=== PATIENT | female | born 1985 | race African-American/Black ===

== ENCOUNTER 2024-07-22 08:29 | Emergency (ER) | payer OTHER, SELFPAY ==
[2024-07-22 08:37] VITALS: BP 113/63
--- NOTE | 2024-07-22 09:03 | EDRN ---
Angelo MELTON in room w/ pt at this time.
--- NOTE | 2024-07-22 09:05 | ED.GENMED ---
History of Present Illness
General
Chief Complaint: Throat Problem
Source: patient
Exam Limitations: none
Time Seen by Provider: 07/22/24 08:52
Nursing documentation reviewed up to this point in time: agreed with
History of Present Illness
History of Present Illness:
39 y/o F 19 weeks preg
htn pre
here with itchy scratchy throat and a cough since lat night
has some nasal congestion and brought up some mucus
cough kept her up
no vomiting/diarrhea/voice hoarseness/ear pain/fever/chills/bodyaches
pt is vaccinated for flu and covid
works at [employer] and a lot of kids there are sick
no meds taken
Past History
Past History
ED Past Medical History: HTN
ED Past Surgical History: None
Social History
Tobacco: Non-smoker
Alcohol: None
Drug: None
Personal: Single
Living: with family
Review of Systems
Review of Systems
Allergies reviewed?: Yes
All Other Systems: Not applicable
Phy Exam
Physical Exam
Physical Exam:
GENERAL: Alert , in no apparent distress
EYE: pupils equal and reactive
NECK: Supple
ENT: b/l TM s clear, pharynx normal no tonsillar hypertrophy or exudates, boggy nasal mucosa b/l, erythematous turbinates
CARDIAC: Regular rate and rhythm, no edema
LUNGS: Clear breath sounds bilaterally, no acute respiratory distress, no wheezes/rales/rhonchi, occ cough
ABDOMEN: Soft, without focal tenderness, no r/g, no cvat, normal bowel sounds
NEUROLOGICAL: Alert and oriented, no focal neuro deficits
SKIN: Warm and dry, skin intact.
MUSCULOSKELETAL: No edema, well perfused.
PSYCH: Normal and appropriate interaction.
Course
Orders/Labs/Results
Orders:
Orders
07/22/24 09:21
COVID-19 Antigen Urgent
Source: Nasal Swab
Influenza A+B Rapid Molecular Urgent
DIANE Source: Nasal Swab
Specimen Description:
Vital Signs
Initial and Last Documented VS:
Initial Vital Signs
Temp Pulse Resp BP Pulse Ox
36.9 C 79 16 113/63 100
07/22/24 08:37 07/22/24 08:37 07/22/24 08:37 07/22/24 08:37 07/22/24 08:37
Last Documented Vital Signs
Temp Pulse Resp BP Pulse Ox
36.9 C 81 16 125/67 100
07/22/24 08:37 07/22/24 09:35 07/22/24 09:35 07/22/24 09:35 07/22/24 09:35
MDM/Problems Addressed
Differential Diagnosis Includes:
uri, covid, flu,
MDM/Problems Addressed:
39 y/o F
19 weeks preg
here with scratchy throat and cough this morning
no meds taken
no sob, vomiting, diarrhea, fever
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
she is well appearing
afebrile
stable vitals
clear lungs
no cough while i was in ther oom
only finding on exam is nasal turbinate edema and erythema
covid/flu neg
fht 140s
recommend OTC meds: tylenol, benadryl, robitussin, fluids etc
supportive care
likely viral
0/4 centour criteria
*Critical Care Note
Total Time (30-74mins, 75-104mins- exclusive of procedures): Not Applicable
ED Attending Note
-
Portions of this chart may have been created with voice recognition software.� Occasional wrong word or��sound alike� substitutions may have occurred due to the inherent limitations of voice recognition software.
Discharge Plan
Departure
Patient Disposition: Home (Routine Discharge)
Date of Disposition: 07/22/24
Time of Disposition: 10:29
Patient with high blood pressure during this ER visit?: No
Condition: Fair
Covid-19: Not Applicable
Discharge Problem:
Acute upper respiratory infection
Instructions: Upper Respiratory Infection - Adult
Prescriptions:
No Action
gentamicin 0.3 % drops
1 drp ophthalmic (eye) QID Qty: 5 0RF
Referrals:
UNKNOWN - PT DOES,NOT KNOW [Family Provider] -
Stand Alone Forms: Return to Work
Activity Restrictions/Additional Instructions:
YOU TESTED NEGATIVE FOR FLU AND COVID TODAY
YOU MAY HAVE ANOTHER VIRUS
TRY BENADRYL 50 MG TONIGHT BEFORE BED TO SEE IF THIS HELPS YOUR CONGESTION AND COUGH
YOU CAN ALSO TAKE OVER THE COUNTER COUGH SYRUP LIKE ROBITUSSIN
YOU CAN USE NASAL SALINE SPRAY IN YOUR NOSE, A HUMIDIFER AND TYLENOL FOR SYMPTOMS
DRINK FLUIDS
RETURN FOR ANY CONCERNS.
Interventions
Interventions:
*Risk Screen - Suicide Last Done: 07/22/24 08:37
*General Assessment Last Done: 07/22/24 08:37
*Neglect/Abuse Screening Last Done: 07/22/24 08:37
ED- Fall Risk Assessment Last Done: 07/22/24 09:30
*ED COVID-19 Vaccine History Last Done: 07/22/24 08:37
ED-EENT Assessment Last Done: 07/22/24 09:30
ED- Pulmonary Assessment Last Done: 07/22/24 09:30
Discharge Date and Time
Print Language: [facility] [place]
[2024-07-22 09:30] VITALS: BMI 33.3
[2024-07-22 09:35] VITALS: BP 125/67
[2024-07-22 09:50] LABS: COVID-19 Antigen Negative (Negative)
--- NOTE | 2024-07-22 10:37 | EDRN ---
Angelo MELTON in room w/pt at this time.
== END 2024-07-22 10:50 | disposition home or self-care (01) ==
LOC: EMR 08:29
PROVIDERS: Physician Assistant; EMERGENCY PHYSICIAN Emergency Medicine
DX: O98.812 Other maternal infectious and parasitic diseases complicating pregnancy, second trimester (principal); Z3A.19 19 weeks gestation of pregnancy; J06.9 Acute upper respiratory infection, unspecified; O16.2 Unspecified maternal hypertension, second trimester; Z11.52 Encounter for screening for COVID-19
CPT/HCPCS: 99283; 87502; 87811